=== PATIENT | male | born 1970 | race Caucasian/White ===

== ENCOUNTER 2016-12-13 17:38 | Emergency (ER) | payer OTHER ==
[~2016-12-13] VITALS: Ht 170.2 cm; Wt 75.0 kg
[2016-12-13 17:50] VITALS: Ht 170.2 cm; Wt 75.0 kg
[2016-12-13] MEDS ORDERED: IBUPROFEN 600 MG TAB PO ONE (20:00)
[2016-12-13] MEDS ORDERED: PRED20TA PO (20:04)
[2016-12-13] MEDS ORDERED: AZIT250T94 PO (20:04)
[2016-12-13] MEDS ORDERED: OSLT75C PO (20:04)
[2016-12-13] MEDS ORDERED: ALBU8.5H3 INH (20:04)
--- NOTE | 2016-12-13 20:07 | ERD ---
ER Documentation Chief Complaint Date/Time DATE: 12/13/16 TIME: 20:05 Chief Complaint COUGH AND CONGESTION X 3 DAYS HPI This is a 46-year-old male who is complaining of cough and congestion for 3 days. Says his eyes are burning and he has a cough that was dry and is now yellow productive. No shortness of breath no chest pain. His fever is 100.5. He has no abdominal pain vomiting diarrhea does have some nasal congestion no body aches ROS All systems reviewed and are negative except as per history of present illness. Medications Home Meds Active Scripts Prednisone* (Prednisone*) 20 Mg Tab, 60 MG PO DAILY for 5 Days, TAB Prov:HELLEN PINON DO 12/13/16 Azithromycin* (Zithromax*) 250 Mg Tablet, 250 MG PO .ZPACK DIRECTED, #6 TAB TAKE 500 MG (2 TABS) THE FIRST DAY THEN 250 MG (1 TAB) DAYS 2-5 Prov:HELLEN PINON DO 12/13/16 Albuterol Sulfate* (Proair HFA*) 8.5 Gm Hfa.aer.ad, 2 PUFF INH Q4, #1 INHALER Prov:HELLEN PINON DO 12/13/16 Oseltamivir Phosphate* (Tamiflu*) 75 Mg Capsule, 75 MG PO BID for 5 Days, CAP Prov:HELLEN PINON DO 12/13/16 Allergies Allergies: Coded Allergies: amoxicillin (Verified Allergy, Mild, rash, 07/22/16) PMhx/Soc History of Surgery: No Anesthesia Reaction: No Hx Neurological Disorder: No Hx Respiratory Disorders: No Hx Cardiac Disorders: No Hx Psychiatric Problems: No Hx Miscellaneous Medical Probl: Yes (KIDNEY STONES) Hx Alcohol Use: No Hx Substance Use: No Hx Tobacco Use: No Smoking Status: Never smoker FmHx Family History: No coronary disease Physical Exam Vitals Vital Signs Date Time Temp Pulse Resp B/P Pulse Ox O2 Delivery O2 Flow Rate FiO2 12/13/16 17:50 98.8 102 20 133/94 96 Physical Exam Const: [Well-developed, well-nourished] Head: [Atraumatic, normocephalic] Eyes: [Normal Conjunctiva, injected sclera PERRLA, EOMI, , no nystagmus] ENT: [Normal External Ears, Nose and Mouth, moist mucus membranes.] Neck: [Full range of motion. No meningismus, no lymphadenopathy.] Resp: [Clear to auscultation bilaterally, no wheezing, rhonchi, rales] Cardio: [Regular rate and rhythm, no murmurs, S1 S2 present] Abd: [Soft, non tender x 4, non distended. Normal bowel sounds, no guarding or rebound, no pulsitile abdominal masses or bruits] Skin: [No petechiae or rashes, no ecchymosis , no maculopapular rash] Back: [No midline or flank tenderness] Ext: [No cyanosis, or edema, FROM x 4, normal inspection, neurovascularly intact x 4] Neur: [Awake and alert, STR 5/5 x 4, sensation intact x 4, no focal findings, cerebellum intact] Psych: [Normal Mood and Affect] Results 24 hrs Current Medications Medications (Trade) Dose Ordered Sig/Ora Route PRN Reason Start Time Stop Time Status Last Admin Dose Admin Ibuprofen (Motrin) 600 mg ONCE ONCE PO 12/13/16 20:00 12/13/16 20:01 DC 12/13/16 19:54 Procedures/MDM We will cover with viral and bacterial protection with Tamiflu and Z-Bebo albuterol and prednisone Departure Diagnosis: Primary Impression: Bronchitis Additional Impression: URI (upper respiratory infection) URI type: unspecified viral URI Qualified Code: J06.9 - Viral upper respiratory tract infection Condition: Stable Patient Instructions: Preventing Common Respiratory Infections, Bronchitis, Antiobiotic Treatment (Adult) HELLEN PINON DO Dec 13, 2016 20:07
== END 2016-12-13 20:50 | disposition home or self-care (01) ==
LOC: FTE 17:38
DX: J20.9 Acute bronchitis, unspecified (principal); J06.9 Acute upper respiratory infection, unspecified
CPT/HCPCS: Z7502; Z7610; 99284

== ENCOUNTER 2017-12-26 07:29 | Day surgery (SDC) | END 2017-12-26 14:08 | disposition home or self-care (01) ==

== ENCOUNTER 2018-01-08 14:03 | Emergency (ER) | END 2018-01-08 18:16 | disposition home or self-care (01) ==

== ENCOUNTER 2019-01-10 12:11 | Emergency (ER) | payer OTHER ==
[~2019-01-10] VITALS: Wt 95.6 kg
[~2019-01-10 12:11] MED LIST: HYDR-4011 PO; OMEP20CA16 PO
--- NOTE | 2019-01-10 13:30 | ERD ---
ER Documentation Chief Complaint Chief Complaint STATES HE HAS "'KIDNEY CANCER" AND WANTS SECOND OPINION HPI This is a 48-year-old male who was present diagnosed with a right renal mass in August who presents for request for referral. Patient states that he has been trying to establish right insurance in order to see a urologist. He previously saw a urologist with another insurance carrier, and wanted a second opinion. He denies any weight loss, no hematuria no fever, no abdominal pain. No acute symptoms. ROS All systems reviewed and are negative except as per history of present illness. Medications Home Meds Reported Medications Hydrocodone/Acetaminophen ([place] 5-325 Tablet) 1 Each Tablet, 1 EACH PO DAILY PRN for SEVERE PAIN LEVEL 7-10, TAB 12/26/17 Omeprazole* (Omeprazole*) 20 Mg Capsule.dr, 20 MG PO BID, #30 CAP 12/26/17 Allergies Allergies: Coded Allergies: amoxicillin (Verified Allergy, Mild, rash, 12/26/17) PMhx/Soc History of Surgery: Yes (HEAD SUTURED SECONDARY TO TRAUMA,JJ STENT) Anesthesia Reaction: No Hx Neurological Disorder: No Hx Respiratory Disorders: No Hx Cardiac Disorders: No Hx Psychiatric Problems: No Hx Miscellaneous Medical Probl: Yes (BPH,L KIDNEY CANCER) Hx Alcohol Use: No Hx Substance Use: No Hx Tobacco Use: No Smoking Status: Never smoker Physical Exam Vitals Vital Signs Date Temp Pulse Resp B/P (MAP) Pulse Ox O2 O2 Flow FiO2 Time Delivery Rate 01/10/19 85 20 155/117 96 Room Air 13:15 (130) 01/10/19 97.3 100 20 160/103 96 12:25 (122) Physical Exam Const: Afebrile, nontoxic Head: Atraumatic Eyes: Normal conjunctiva ENT: Normal external ears, nose and mouth. Neck: Resp: Normal respiratory effort: Abd: Soft, nontender nondistended Neur: Awake and alert Psych: Normal mood and affect Procedures/MDM This 48-year-old male presents for evaluation for referral for a renal mass that was discovered in August 2018. Patient presents without any acute symptoms, no distress, his mother was consulted for assistance, and information for referral was provided, at discharge the patient was in no acute distress and had no complaints. Departure Diagnosis: Primary Impression: Renal mass Condition: Stable SANDEE SHANE MD Jan 10, 2019 13:30
[2019-01-10 15:05] VITALS: BP 103/75; PULSE 70; RESP 20
== END 2019-01-10 15:05 | disposition home or self-care (01) ==
LOC: E/R 12:11
DX: N28.89 Other specified disorders of kidney and ureter (principal); Z85.528 Personal history of other malignant neoplasm of kidney
CPT/HCPCS: 99282